=== PATIENT | male | born 1940 | race Caucasian/White ===

== ENCOUNTER 2025-06-08 11:13 | Emergency (ER) | payer OTHER, SELFPAY ==
--- NOTE | ~2025-06-08 | CT_ITS ---
EXAMINATION: CT brain wo con DATE: 06/08/2025 11:41 INDICATION: Altered mental status. Right-sided weakness. TECHNIQUE: Computed tomography (CT) of the head was performed without intravenous contrast. The dose-length product was 1135.00 mGy-cm. Automated exposure control and iterative reconstruction technique were employed. COMPARISON: None FINDINGS: There are chronic bilateral lacunar infarctions. Study limited by motion artifact. No ventriculomegaly or midline shift. There is intracranial atherosclerosis. Chronic left cerebellar infarction. Chronic left occipital lobe infarction. Chronic left posterior parietal infarction. Paranasal sinuses and mastoids are pneumatized. No depressed skull fractures. No acute intracranial hemorrhage, infarction, mass or mass effect IMPRESSION: 1. Extremely limited study due to motion artifact. No acute intracranial abnormality. 2: Chronic bilateral lacunar, left cerebellar, left occipital lobe and left parietal lobe infarctions. Reviewed, dictated and finalized at location O. IMMER IMPRESSION: 1. Extremely limited study due to motion artifact. No acute intracranial abnorm ality. 2: Chronic bilateral lacunar, left cerebellar, left occipital lobe and left pa rietal lobe infarctions.
--- NOTE | ~2025-06-08 | XR_ITS ---
EXAMINATION: XR chest 1V, 06/08/2025 11:36 PEDODONTIST HISTORY: ams, weakness COMPARISON: No comparisons available. Technique: Single view. Findings: The lungs are clear, no effusion. No pneumothorax. Heart is normal size. Mediastinal and hilar contours are within normal limits. Bony thorax no acute abnormality. Impression: No acute cardiopulmonary abnormality. Reviewed, dictated and finalized at location P. DONTIST Impression: No acute cardiopulmonary abnormality.
[2025-06-08 11:12] VITALS: PULSE 67; RESP 28; TEMP 36.4
--- NOTE | 2025-06-08 11:16 | ECG_ITS ---
Test Date: 2025-06-08 11:15:15 Measurements Intervals [place] Rate: 61 P: 0 SD: 0 QRS: 64 QRSD: 99 T: 128 QT: 413 QTc: 418 Interpretive Statements ARTIFACT PRECLUDES ACCURATE RHYTHM INTERPRETATION SEPTAL MYOCARDIAL INFARCTION , OF INDETERMINATE AGE [40+ ms Q WAVE IN V1/V2] MODERATE T-WAVE ABNORMALITY, CONSIDER LATERAL ISCHEMIA [-0.1+ mV T-WAVE IN I/aVL/V5/V6] No previous ECG available for comparison Electronically Signed On 06-08-2025 13:41:38 NET DEVELOPER ARCHITECT by Ron Ennis M.D.
[2025-06-08 11:28] VITALS: BP 167/81; O2SAT 96
--- NOTE | 2025-06-08 11:30 | PC.NURSE ---
Notified MD Carver of patient being sent ot ER from [facility] for questionable increased right side weakness that started about 729 today. patient has history of stroke with baseline right sided weakness, aphasia, and incontinence from stroke of 05/28. Based on assessment on time of arrival, patient is is strong bilaterally in all extremities, some asphasia, alert and oriented x1. mumbled speech which makes it difficult to understand patient at time. MD Carver wanted CT head ordered at this time, no stroke stop called per MD. patient is currently in CT scan. all VSS.
[2025-06-08 11:38] LABS: Hematocrit 38.0 % (42.0-52.0); Hemoglobin 12.2 g/dL (14.0-18.0); Immature Granulocyte Percent A 0.7 % (0-0.5); Lymphocytes Absolute Auto 0.69 K/mm3 (0.9-3.2); Mean Corpuscular HGB Conc 32.1 g/dl (32-36); Mean Corpuscular Hemoglobin 31.4 pg (26-34); Mean Corpuscular Volume 97.9 fl (80-100); Nucleated Red Blood Cells Absolute Auto 0.000 K/mm3 (0.0-0.012); Nucleated Red Blood Cells Perc 0.0 % (0.0-0.2); Platelet Count Result 310 k/mm3 (150-375); Red Blood Count 3.88 M/mm3 (4.6-6.20); White Blood Count 8.2 K/mm3 (4.5-10.0)
[2025-06-08 11:39] VITALS: PULSE 61
[2025-06-08 11:51] LABS: INR 1.6; Partial Thromboplastin Time 33.9 Seconds (22.3-36.8); Prothrombin Time 19.0 Seconds (11.1-14.7)
[2025-06-08 11:53] LABS: Alanine Aminotransferase 6 U/L (6-50); Albumin Level 4.3 g/dL (3.5-5.1); Alkaline Phosphatase 108 U/L (38-126); Anion Gap 6 mmol/L (4-12); Aspartate Amino Transferase 27 U/L (17-59); Bilirubin,Total 0.6 mg/dL (0.2-1.3); Blood Urea Nitrogen 39 mg/dL (9-20); Calcium 9.4 mg/dL (8.4-10.2); Carbon Dioxide 33 mmol/L (22-30); Chloride 101 mmol/L (98-107); Estimated Glomerular Filt Rate 47; Glucose 119 mg/dL (65-110); Potassium 4.5 mmol/L (3.4-5.0); Sodium 140 mmol/L (137-145); Total Protein 7.6 g/dL (6.3-8.2)
[2025-06-08 12:03] LABS: Troponin I 0.019 ng/mL (0.000-0.034)
[2025-06-08 12:18] VITALS: BP 183/85; PULSE 72; RESP 20; O2SAT 100
--- OUTSIDE RECORDS SUMMARY | 2025-06-08 12:40 | XMS_ITS | Clinical Summary ---
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
--- OUTSIDE RECORDS SUMMARY | 2025-06-08 12:40 | XMS_ITS | Encounter Summary ---
Author Organization [facility] Address 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
--- OUTSIDE RECORDS SUMMARY | 2025-06-08 12:40 | XMS_ITS | Encounter Summary ---
Author Organization [facility] Address [address] [place] [address] Care Team Providers Care Commercial Construction Project Manager Name Role Phone Unavailable Primary Care Provider Unavailabl e Encounter Details Date Type Department Care Team (Late st Contact Info) Description 03/07/2023 Lab Requisition [facility] - DermPath Lab [address] [place] [address] Arnav Grossman MD [address] [place] [address] Social History Tobacco Use Types Packs/Day Years Used Date Smoking Tobacco: Never Assessed Sex and Gender Information Value Date Recorded Sex Assigned at Not on file Legal Sex Male 10:13 AM CDT Gender Identity Not on file Sexual Orientation Not on file documented as of this encounter Plan of Treatment Not on file documented as of this encounter Procedures Procedure Name Priority Date/Time Associated Diagnosis Comments DERMATOPATHOLOGY Routine 03/05/2023 12:0 0 AM CDT documented in this encounter Results * DERMATOPATHOLOGY (03/05/2023 12:00 AM CDT) Case Report Dermatopathology Report Case: [id number] Authorizing Provider: Arnav Grossman MD Collected: 03/05/2023 12:00 AM Ordering Location: [facility] DermPath Lab Received: 03/07/2023 10:27 AM Pathologist: Linda Schmitz MD Specimen: Skin, right anti helix 5:26 PM CDT DERMATOPATHOLOGY LABORATORY Final Diagnosis Specimen A. 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 The specimen consists of a shave biopsy measuring 6x5x2 mm. Jar 0. 3 5:26 PM CDT DERMATOPATHOLOGY LABORATORY Microscopic Description Specimen A. SKIN, right anti helix: The epidermis shows parakeratosis, full thickness disorderly maturation of keratinocytes, mitoses at different levels, and dyskeratotic cells. The lesion extends to the base of the biopsy. COMMENT: An invasive squamous cell carcinoma cannot be ruled out. 3 5:26 PM CDT DERMATOPATHOLOGY LABORATORY Disclaimer An external and internal positive and negative controls are appropriate for the histochemical, immunohistochemical and immunofluorescence stain(s) in this case (if any), except where stated explicitly. The performance characteristics of the stain(s) cited in this report were developed and its performance characteristic determined by the Dermatopathology Laboratory at [facility], directed by Dr. Caryn Blanchard. These tests need not be, and therefore are not, approved by the [place] Food and Drug Administration. The tests are used for clinical purposes. Billing Codes Specimen Charges Stain Charges 74471 1 3 5:26 PM CDT DERMATOPATHOLOGY LABORATORY Embedded Images 3 5:26 PM CDT DERMATOPATHOLOGY LABORATORY Pathology/Cytolog y TISSUE SPECIMEN FROM SKIN / Unknown 03/05/2023 03/07/2023 10:27 AM CDT us Arnav Grossman MD LAB - PATHOLOGY/CYTOLOGY ORDER FLORIDALMA Final Result DERMATOPATHOLOGY LABORATORY [facility] - Department of Dermatology [address], [address] [phone] documented in this encounter Visit Diagnoses Not on filedocumented in this encounter
--- OUTSIDE RECORDS SUMMARY | 2025-06-08 12:40 | XMS_ITS | Clinical Summary ---
Author Organization [facility] Address [address] [place] [address] Care Team Providers Care Buffing Machine Operator Semiautomatic Name Role Phone Jose Daniel Arshad MD Primary Care Provider Allergies Active Allergy Reactions Criticality Noted Date Comments Hydrochlorothiazide Sulfa (Sulfonamide Antibiotics) Medications fluorouraciL (EFUDEX) 5 % creamIndications :Actinic keratosis Apply thin film two times daily to scalp and ears for 4 weeks. 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 Gender Identity Not on file Sexual Orientation Not on file Last Filed Vital Signs Vital Sign Reading Time Taken Comments Blood Pressure 153/79 08/03/2024 9:34 AM CO FOUNDER & CEO Pulse 83 08/03/2024 9:34 AM CO FOUNDER & CEO Temperature - - Respiratory Rate - - Oxygen Saturation 97% 08/03/2024 9:34 AM CO FOUNDER & CEO Inhaled Oxygen Concentration - - Weight - - Height - - Body Mass Index - - Plan of Treatment Health Maintenance Due Date Last Done Comments Depression Screening 1938 Fall Risk Assessment 1940 Hepatitis B Screening 1956 Zoster Vaccine (1 of 2) 1988 Well Visit 65+ 10/27/2003 DTaP/Tdap/Td Vaccine (2 - Td or Tdap) 08/27/2023 08/27/2013 Covid-19 Vaccine (2024-2 6 season) 2025 04/18/2022, 03/20/2021, 08/24/2020, Additional history exists Influenza Vaccine (#1) 2025 4, 05/07/2023, 04/18/2022, Additional history exists Pneumococcal vaccine 65+ Completed 020, 05/03/2016, 11/02/2015, Additional history exists Insurance [employer] MEDICARE Care Teams Buffing Machine Operator Semiautomatic Relationship Specialty [place] [id number] [place] [id number] PCP - General Internal Medicine 07/01/24
--- OUTSIDE RECORDS SUMMARY | 2025-06-08 12:41 | XMS_ITS | Clinical Summary ---
Author Organization [facility] Address [address] [place] [address] Care Team Providers Care Head Loft Worker Name Role Phone Unavailable Primary Care Provider Unavailabl e Source Comments [facility],non-owned Affiliates and Associated Physician Practices is amultiple site organization consisting of ambulatory clinics and hospital sitesin [place], [place], [place] and [place]. This disclosure is being madepursuant to the Care Everywhere program and may not contain all information available regarding this patient. Last updated 18.[facility] Medications * Be aware that medications may not be up to date on this document. Alwaysverify current medications with the patient. carbidopa-levod opa (Sinemet) 25-100 MG tablet Take 1.5 (one and one-half) tablets by mouth 5 times daily 10/22/2024 Active clonazePAM (KlonoPIN) 1 MG tablet Take 1 (one) tablet by mouth at bedtime 05/23/2025 Active bumetanide (Bumex) 2 MG tablet Take 1 (one) tablet by mouth once daily 02/28/2025 Active carvedilol (Coreg) 6.25 MG tablet Take 1 (one) tablet by mouth 2 times daily 01/20/2025 Active folic acid (Folvite) 1 MG tablet Take 0.5 (one-half) tablet by mouth once daily 03/23/2025 Active hydrOXYzine HCl (Atarax) 10 MG tablet Take 1 (one) tablet by mouth at bedtime 11/23/2024 Active omeprazole (PriLOSEC) 40 MG capsule Take 1 (one) capsule by mouth once daily 02/14/2025 Active potassium chloride ER (Klor-Con M) 20 MEQ tablet Take 1 (one) tablet by mouth every 12 hours 03/21/2025 Active apixaban (Eliquis) 5 MG tablet Take 1 (one) tablet by mouth 2 times daily 60 tablet 06/02/2025 Active polyethylene glycol 3350 (Miralax) 17 g packet Take 17 (seventeen) g by mouth once daily 30 packet 06/03/2025 Active senna (Senokot) 8.6 MG tablet Take 1 (one) tablet by mouth once daily 30 tablet 06/03/2025 Active atorvastatin (Lipitor) 80 MG tablet Take 1 (one) tablet by mouth at bedtime 30 tablet 06/02/2025 Active Active Problems Problem Noted Date Diagnosed Date Parkinson disease 06/02/2025 Assessment & Plan (06/02/2025 1:41 PM SENIOR VALIDATION ENGINEER): Stable Plan: Continue home sinemet at home 25-100 mg 5 times daily (HFpEF) heart failure with preserved ejection fr action 06/02/2025 Assessment & Plan (06/02/2025 1:41 PM SENIOR VALIDATION ENGINEER): 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 Plan: Discharge to acute rehab Continue atorvastatin 80 mg qHS Continue Eliquis 5 mg BID Continue home Coreg 6.25 BID and bumex 2mg daily Outpatient [facility] for Watchman device failure CVA (cerebral vascular accident) 05/29/2025 Assessment & Plan (06/02/2025 1:41 PM SENIOR VALIDATION ENGINEER): 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 Plan: Discharge to acute rehab Continue atorvastatin 80 mg qHS Continue Eliquis 5 mg BID Continue home Coreg 6.25 BID and bumex 2mg daily Outpatient [facility] for Watchman device failure Anxiety 05/29/2025 Assessment & Plan (06/02/2025 1:41 PM SENIOR VALIDATION ENGINEER): Plan: Continue home Clonazepam 0.5 mg morning, 1 mg qhs Right sided weakness 05/28/2025 Assessment & Plan (06/02/2025 1:41 PM SENIOR VALIDATION ENGINEER): 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 Plan: Discharge to acute rehab Continue atorvastatin 80 mg qHS Continue Eliquis 5 mg BID Continue home Coreg 6.25 BID and bumex 2mg daily Outpatient [facility] for Watchman device failure 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 10/02/2022 Assessment & Plan (06/02/2025 1:41 PM SENIOR VALIDATION ENGINEER): 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 Plan: Discharge to acute rehab Continue atorvastatin 80 mg qHS Continue Eliquis 5 mg BID Continue home Coreg 6.25 BID and bumex 2mg daily Outpatient [facility] for Watchman device failure Status post CVA 08/25/2022 Assessment & Plan (06/02/2025 1:41 PM SENIOR VALIDATION ENGINEER): 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 Plan: Discharge to acute rehab Continue atorvastatin 80 mg qHS Continue Eliquis 5 mg BID Continue home Coreg 6.25 BID and bumex 2mg daily Outpatient [facility] for Watchman device failure Stage 3b chronic kidney disease 04/04/2022 Assessment & Plan (06/02/2025 1:41 PM SENIOR VALIDATION ENGINEER): Chronic conditions, stable Plan: Continue home omeprazole 40 mg daily; Follow up with PCP Chronic obstructive pulmonary disease 02/28/2021 Assessment & Plan (06/02/2025 1:41 PM SENIOR VALIDATION ENGINEER): Chronic conditions, stable Plan: Continue home omeprazole 40 mg daily; Follow up with PCP Persistent atrial fibrillation 10/20/2019 Assessment & Plan (06/02/2025 1:41 PM SENIOR VALIDATION ENGINEER): 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 Plan: Discharge to acute rehab Continue atorvastatin 80 mg qHS Continue Eliquis 5 mg BID Continue home Coreg 6.25 BID and bumex 2mg daily Outpatient [facility] for Watchman device failure Chronic diastolic congestive heart failure 08/31 Assessment & Plan (06/02/2025 1:41 PM SENIOR VALIDATION ENGINEER): 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 Plan: Discharge to acute rehab Continue atorvastatin 80 mg qHS Continue Eliquis 5 mg BID Continue home Coreg 6.25 BID and bumex 2mg daily Outpatient [facility] for Watchman device failure Generalized anxiety disorder 08/10/2019 Assessment & Plan (06/02/2025 1:41 PM SENIOR VALIDATION ENGINEER): Plan: Continue home Clonazepam 0.5 mg morning, 1 mg qhs Gastroesophageal reflux disease without esophagi tis 08/04/2018 Assessment & Plan (06/02/2025 1:41 PM SENIOR VALIDATION ENGINEER): Chronic conditions, stable Plan: Continue home omeprazole 40 mg daily; Follow up with PCP Encounters Date Type Department Care Team Description 05/28/2025 5:43 PM SENIOR VALIDATION ENGINEER - 06/02/2025 4:13 PM SENIOR VALIDATION ENGINEER Hospital Encounter [facility] [address] [place] [id number] Nomi Bhat MD Neurology Discharge Disposition: Rehab:Inpatient 05/28/2025 Travel from Last 3 Months Social History Tobacco Use Types Packs/Day Years Used Date Smoking Tobacco: Never Smokeless Tobacco: Never Alcohol Use Standard Drinks/Week Comments Never 0 (1 standard drink = 0.6 oz pur e alcohol) PHQ-2 Answer Date Recorded Patient Health Questionnaire-2 Score 0 05/28/2025 AUDIT-C Answer Date Recorded Q1: How often do you have a drink containing alcohol? Never 05/29/2025 Q2: How many drinks containi ng alcohol do you have on a typical day when you are drinking? Patient does not drink Q3: How often do you have si x or more drinks on one occasion? Never 05/29/2025 Overall Financial Resource Strain (CARDIA) Answe r Date Recorded How hard is it for you to pa y for the very basics like food, housing, medical care, and heating? Not hard at all 05/29/2025 [employer] [facility] - Occupational Stress Questionnaire Answer Date Recorded Do you feel stress - tense, restless, nervous, or anxious, or unable to sleep at night because your mind is troubled all the time - these days? Not at all 05/29/2025 Hunger Vital Sign Answer Date Recorded Within the past 12 months, y ou worried that your food would run out before you got the money to buy more. Never true 11/16/20 25 Within the past 12 months, t he food you bought just didn't last and you didn't have money to get more. Never true 05/29/2025 PRAPARE - Transportation Answer Date Re corded In the past 12 months, has l ack of transportation kept you from medical appointments or from getting medications? No 05/14 In the past 12 months, has l ack of transportation kept you from meetings, work, or from getting things needed for daily living? No 05/29/2025 Housing Stability Vital Sign Answer Bar e Recorded In the last 12 months, was t here a time when you were not able to pay the mortgage or rent on time? No 05/29/2025 In the past 12 months, how m any times have you moved where you were living? 0 05/29/2025 At any time in the past 12 m [facility], were you homeless or living in a correction (including now)? No 05/29/2025 Sex and Gender Information Value Date Recorded Sex Assigned at Not on file Legal Sex Male 10:13 AM CDT Gender Identity Not on file Sexual Orientation Not on file Last Filed Vital Signs Vital Sign Reading Time Taken Comments Blood Pressure 169/64 06/02/2025 3:54 AM SENIOR VALIDATION ENGINEER Pulse 63 06/02/2025 11:30 AM SENIOR VALIDATION ENGINEER Temperature 37.2 C (98.9 F) 06/02/2025 3:54 AM SENIOR VALIDATION ENGINEER Respiratory Rate 18 06/02/2025 11:30 AM SENIOR VALIDATION ENGINEER Oxygen Saturation 98% 06/02/2025 11:30 AM SENIOR VALIDATION ENGINEER Inhaled Oxygen Concentration - - Weight 66.4 kg (146 lb 4.8 oz) 06/02/2025 4:00 A M SENIOR VALIDATION ENGINEER Height 195.6 cm (6' 5) 05/28/2025 7:30 PM SENIOR VALIDATION ENGINEER Body Mass Index 17.35 05/28/2025 7:30 PM SENIOR VALIDATION ENGINEER Plan of Treatment Health Maintenance Due Date Last Done Comments DTAP/TDAP/TD VACCINES (1 - Tdap) 1959 PNEUMOCOCCAL VACCINE 50+ (1 of 2 - PCV) 1957 ZOSTER VACCINE (1 of 2) 1988 Respiratory Syncytial Virus (RSV) Vaccine Pt: or over 60 yrs (1 - 1-dose 75+ series) 2013 MEDICARE AWV CALENDAR YEAR 2024 COVID-19 VACCINE ( season) 2025 04/18/2022, 03/20/2021, 08/24/2020, Additional history exists INFLUENZA VACCINE (#1) 2025 4, 05/07/2023, 04/18/2022, Additional history exists DEPRESSION SCREENING Completed 05/28/2025 HEPATITIS B VACCINE Aged Out No longe r eligible based on patient's age to complete this topic HIB VACCINE Aged Out No longer eligi ble based on patient's age to complete this topic HPV VACCINE Aged Out No longer eligi ble based on patient's age to complete this topic MENINGOCOCCAL (Group B) VACCINE SHARED DECISION-MAKING Aged Out No longer eligible based on patient's age to complete this topic MENINGOCOCCAL GROUPS A/C/Y/W VACCINE Aged Out No longer eligible based on patient's age to complete this topic Procedures Procedure Name Priority Date/Time Associated Diagnosis Comments GLUCOSE - POINT OF CARE Routine 06/02/2025 12:22 PM SENIOR VALIDATION ENGINEER GLUCOSE - POINT OF CARE Routine 06/02/2025 8:02 AM SENIOR VALIDATION ENGINEER GLUCOSE - POINT OF CARE Routine 06/01/2025 9:56 PM SENIOR VALIDATION ENGINEER PHOSPHORUS BLOOD Routine 06/01/2025 6:17 PM SENIOR VALIDATION ENGINEER MAGNESIUM BLOOD Routine 06/01/2025 6:17 PM SENIOR VALIDATION ENGINEER CBC W AUTO DIFFERENTIAL Routine 06/01/2025 6:17 PM SENIOR VALIDATION ENGINEER BASIC METABOLIC PANEL (CALCIUM TOTAL) Routine 06/01/2025 6:17 PM SENIOR VALIDATION ENGINEER GLUCOSE - POINT OF CARE Routine 06/01/2025 5:19 PM SENIOR VALIDATION ENGINEER GLUCOSE - POINT OF CARE Routine 06/01/2025 11:26 AM SENIOR VALIDATION ENGINEER GLUCOSE - POINT OF CARE Routine 06/01/2025 10:19 AM SENIOR VALIDATION ENGINEER CBC W/O DIFFERENTIAL Routine 06/01/2025 8:18 AM SENIOR VALIDATION ENGINEER GLUCOSE - POINT OF CARE Routine 05/31/2025 8:31 PM SENIOR VALIDATION ENGINEER GLUCOSE - POINT OF CARE Routine 05/31/2025 6:16 PM SENIOR VALIDATION ENGINEER GLUCOSE - POINT OF CARE Routine 05/31/2025 11:34 AM SENIOR VALIDATION ENGINEER XR CHEST 1VW PORTABLE Routine 05/31/2025 11:06 AM SENIOR VALIDATION ENGINEER Cough, unspecified type GLUCOSE - POINT OF CARE Routine 05/31/2025 7:53 AM SENIOR VALIDATION ENGINEER PHOSPHORUS BLOOD Routine 05/31/2025 4:58 AM SENIOR VALIDATION ENGINEER MAGNESIUM BLOOD Routine 05/31/2025 4:58 AM SENIOR VALIDATION ENGINEER CBC W AUTO DIFFERENTIAL Routine 05/31/2025 4:58 AM SENIOR VALIDATION ENGINEER BASIC METABOLIC PANEL (CALCIUM TOTAL) Routine 05/31/2025 4:58 AM SENIOR VALIDATION ENGINEER GLUCOSE - POINT OF CARE Routine 05/30/2025 8:52 PM SENIOR VALIDATION ENGINEER GLUCOSE - POINT OF CARE Routine 05/30/2025 4:58 PM SENIOR VALIDATION ENGINEER CARDIAC EKG ORDER 05/30/2025 1:2 9 PM SENIOR VALIDATION ENGINEER GLUCOSE - POINT OF CARE Routine 05/30/2025 12:07 PM SENIOR VALIDATION ENGINEER GLUCOSE - POINT OF CARE Routine 05/30/2025 8:07 AM SENIOR VALIDATION ENGINEER PHOSPHORUS BLOOD Routine 05/30/2025 5:24 AM SENIOR VALIDATION ENGINEER MAGNESIUM BLOOD Routine 05/30/2025 5:24 AM SENIOR VALIDATION ENGINEER CBC W AUTO DIFFERENTIAL Routine 05/30/2025 5:24 AM SENIOR VALIDATION ENGINEER BASIC METABOLIC PANEL (CALCIUM TOTAL) Routine 05/30/2025 5:24 AM SENIOR VALIDATION ENGINEER GLUCOSE - POINT OF CARE Routine 05/29/2025 7:49 PM SENIOR VALIDATION ENGINEER GLUCOSE - POINT OF CARE Routine 05/29/2025 5:28 [address]IOR VALIDATION [address]ER CT HEAD WO CONTRAST Routine 05/29/2025 3 :26 PM SENIOR VALIDATION ENGINEER Cerebrovascular accident (CVA), unspecified mechanism (HCC) GLUCOSE - POINT OF CARE Routine 05/29/2025 11:42 AM SENIOR VALIDATION ENGINEER ECHO COMPLETE W CONTRAST W BUBBLE STUDY Routine 05/29/2025 11:28 AM SENIOR VALIDATION ENGINEER Cerebrovascular accident (CVA), unspecified mechanism (HCC) FL SWALLOWING FUNCTION STUDY Routine 05/29/2025 10:15 AM SENIOR VALIDATION ENGINEER Status post CVA LIPID PROFILE Routine 05/28/2025 11:57 PM SENIOR VALIDATION ENGINEER PHOSPHORUS BLOOD Routine 05/28/2025 11:5 7 PM SENIOR VALIDATION ENGINEER MAGNESIUM BLOOD Routine 05/28/2025 11:57 PM SENIOR VALIDATION ENGINEER CBC W AUTO DIFFERENTIAL Routine 05/28/2025 11:57 PM SENIOR VALIDATION ENGINEER BASIC METABOLIC PANEL (CALCIUM TOTAL) Routine 05/28/2025 11:57 PM SENIOR VALIDATION ENGINEER CT HEAD WO CONTRAST STAT 05/28/2025 1 0:17 PM SENIOR VALIDATION ENGINEER Cerebrovascular accident (CVA), unspecified mechanism (HCC) BASIC METABOLIC PANEL (CALCIUM TOTAL) Routine 05/28/2025 7:47 PM SENIOR VALIDATION ENGINEER TROPONIN-I HIGH SENSITIVE REFLEX 1HOUR Timed 05/28/2025 7:47 PM SENIOR VALIDATION ENGINEER HEMOGLOBIN A1C Add on 05/28/2025 7:47 PM SENIOR VALIDATION ENGINEER TROPONIN-I HIGH SENSITIVE BASELINE + 1HR STAT 05/28/2025 6:47 PM SENIOR VALIDATION ENGINEER XR CHEST 1VW PORTABLE STAT 05/28/2025 6:31 PM SENIOR VALIDATION ENGINEER Cerebrovascular accident (CVA), unspecified mechanism (HCC) PTT STAT 05/28/2025 6:15 PM SENIOR VALIDATION ENGINEER PT-INR STAT 05/28/2025 6:15 PM SENIOR VALIDATION ENGINEER GLUCOSE - POINT OF CARE Routine 05/28/2025 6:14 PM SENIOR VALIDATION ENGINEER EKG 12-LEAD Routine 05/28/2025 6:09 PM SENIOR VALIDATION ENGINEER Cerebrovascular accident (CVA), unspecified mechanism (HCC) TROPONIN-I HIGH SENSITIVE STAT 05/28/2025 5:55 PM SENIOR VALIDATION ENGINEER COMPREHENSIVE METABOLIC PANEL STAT 05/28/2025 5:55 PM SENIOR VALIDATION ENGINEER CBC W AUTO DIFFERENTIAL STAT 05/28/2025 5:55 PM SENIOR VALIDATION ENGINEER from Last 3 Months Results * (ABNORMAL) GLUCOSE - POINT OF CARE (06/02/2025 12:22 PM SENIOR VALIDATION ENGINEER) Only the most recent of18 resultswithin the time period is included. Glucose WB/POC 118(H) 70 - 99 mg/dL 06/02/2025 12:25 PM SENIOR VALIDATION ENGINEER [facility] Specimen Type Arterial/C apillary 06/02/2025 12:25 PM SENIOR VALIDATION ENGINEER [facility] Blood BLOOD SPECIMEN / Unknown 06/02/2025 12:22 PM SENIOR VALIDATION ENGINEER 06/02/2025 12:25 PM SENIOR VALIDATION ENGINEER Nomi Bhat MD LAB - POINT OF CARE ORDERAB LES Final Result [facility] [address] [place] [address] [phone] * (ABNORMAL) CBC W AUTO DIFFERENTIAL (06/01/2025 6:17 PM [facility]) Only the most recent of5 resultswithin the time period is included. WBC 12.1(H) 4.0 - 10.7 x10E9/L 06/01/2025 9:00 PM [facility] RBC Count 3.80(L) 4.30 - 5.80 x10E12/L 06/01/2025 9:00 PM [facility] Hemoglobin 12.3(L) 13.3 - 17.5 g/dL 06/01/2025 9:00 PM [facility] Hematocrit 36.5(L) 38.7 - 51.1 % 06/01/2025 9:00 PM [facility] MCV 96.1 80.0 - 98.0 fL 06/01/2025 9:00 PM [facility] MCH 32.4 26.7 - 33.6 pg 06/01/2025 9:00 PM [facility] MCHC 33.7 31.7 - 36.3 g/dL 06/01/2025 9:00 PM [facility] RDW-CV 12.1 11.3 - 14.8 % 06/01/2025 9:00 PM [facility] Platelet Count 330 150 - 420 x10E9/L 06/01/2025 9:00 PM [facility] MPV 10.4 7.8 - 11.4 fL 06/01/2025 9:00 PM [facility] Neutrophil % 82.0(H) 41.0 - 74.0 % 06/01/2025 9:00 PM [facility] Lymphocyte % 6.9(L) 17.0 - 47.0 % 06/01/2025 9:00 PM [facility] Monocyte % 8.1 3.0 - 11.0 % 06/01/2025 9:00 PM [facility] Eosinophil % 2.0 0.0 - 7.0 % 06/01/2025 9:00 PM [facility] Basophil % 0.3 0.0 - 1.6 % 06/01/2025 9:00 PM [facility] Immature Granulocytes % 0.7 0.0 - 1.0 % 06/01/2025 9:00 PM [facility] Neutrophil Absolute 9.95(H) 1.60 - 7.50 x10E9/L 06/01/2025 9:00 PM [facility] Lymphocyte Absolute 0.84(L) 1.00 - 4.40 x10E9/L 06/01/2025 9:00 PM [facility] Monocyte Absolute 0.98 0.15 - 1.00 x10E9/L 06/01/2025 9:00 PM [facility] Eosinophil Absolute 0.24 0.00 - 0.60 x10E9/L 06/01/2025 9:00 PM [facility] Basophil Absolute 0.04 0.00 - 0.13 x10E9/L 06/01/2025 9:00 PM [facility] Blood BLOOD SPECIMEN / Unknown Lab Venipuncture / Unknown 06/01/2025 6:17 PM SENIOR VALIDATION ENGINEER 06/01/2025 8:54 PM SENIOR VALIDATION ENGINEER us Nomi Bhat MD LAB - HEMATOLOGY ORDERABLES Final Result [address] [address], [place] [phone] * (ABNORMAL) BASIC METABOLIC PANEL (CALCIUM TOTAL) (06/01/2025 6:17 PM SENIOR VALIDATION ENGINEER) Only the most recent of5 resultswithin the time period is included. BUN 40(H) 7 - 26 mg/dL 06/01/2025 9:27 PM [facility] Creatinine 1.26(H) 0.71 - 1.16 mg/dL 06/01/2025 9:27 PM [facility] Sodium 150(H) 136 - 145 mmol/L 06/01/2025 9:27 PM [facility] Potassium 3.8 3.5 - 4.5 mmol/L 06/01/2025 9:27 PM [facility] Chloride 108(H) 98 - 107 mmol/L 06/01/2025 9:27 PM [facility] CO2 29 22 - 29 mmol/L 06/01/2025 9:27 PM [facility] Glucose 123(H) 70 - 99 mg/dL 06/01/2025 9:27 PM [facility] Calcium 9.5 8.4 - 10.2 mg/dL 06/01/2025 9:27 PM [facility] Anion Gap 13 6 - 16 06/01/2025 9:27 PM [facility] BUN/Creatinine Ratio 32(H) 7 - 23 06/01/2025 9:27 PM [facility] Osmolality Calculated 321(H) 275 - 295 mOsm/kg 06/01/2025 9:27 PM [facility] eGFR by CKD-EPI 56(L) >=90 mL/min/1.7 3 m2 06/01/2025 9:27 PM [facility] Comment:Estimated Glomerular Filtration Rate (eGFR) calculated using the CKD-EPI Creatinine Equation (2020), per the National Kidney Foundation and [place] [employer]ph[employer] recommendations. Blood BLOOD SPECIMEN / Unknown Lab Venipuncture / Unknown 06/01/2025 6:17 PM SENIOR VALIDATION ENGINEER 06/01/2025 8:54 PM SENIOR VALIDATION ENGINEER Nomi Bhat MD LAB - CHEMISTRY ORDERABLES Final Result [address] [address], [place] [phone] * PHOSPHORUS BLOOD (06/01/2025 6:17 PM SENIOR VALIDATION ENGINEER) Only the most recent of4 resultswithin the time period is included. Phosphorus 3.2 2.8 - 5.1 mg/dL 06/01/2025 9:27 PM [facility] Blood BLOOD SPECIMEN / Unknown Lab Venipuncture / Unknown 06/01/2025 6:17 PM SENIOR VALIDATION ENGINEER 06/01/2025 8:54 PM SENIOR VALIDATION ENGINEER us Nomi Bhat MD LAB - CHEMISTRY ORDERABLES Final Result [address] [place] [address], [place] [phone] * MAGNESIUM BLOOD (06/01/2025 6:17 PM SENIOR VALIDATION ENGINEER) Only the most recent of4 resultswithin the time period is included. [facility] Magnesium 2.2 1.6 - 2.6 mg/dL 06/01/2025 9:27 PM [facility] Blood BLOOD SPECIMEN / Unknown Lab Venipuncture / Unknown 06/01/2025 6:17 PM SENIOR VALIDATION ENGINEER 06/01/2025 8:54 PM SENIOR VALIDATION ENGINEER Nomi Bhat MD LAB - CHEMISTRY ORDERABLES Final Result [address] [address], [place] [phone] * (ABNORMAL) CBC W/O DIFFERENTIAL (06/01/2025 8:18 AM SENIOR VALIDATION ENGINEER) [facility] WBC 9.4 4.0 - 10.7 x10E9/L 06/01/2025 9:03 AM [facility] RBC Count 3.65(L) 4.30 - 5.80 x10E12/L 06/01/2025 9:03 AM [facility] Hemoglobin 11.5(L) 13.3 - 17.5 g/dL 06/01/2025 9:03 AM [facility] Hematocrit 34.7(L) 38.7 - 51.1 % 06/01/2025 9:03 AM [facility] MCV 95.1 80.0 - 98.0 fL 06/01/2025 9:03 AM [facility] MCH 31.5 26.7 - 33.6 pg 06/01/2025 9:03 AM [facility] MCHC 33.1 31.7 - 36.3 g/dL 06/01/2025 9:03 AM [facility] RDW-CV 11.8 11.3 - 14.8 % 06/01/2025 9:03 AM [facility] Platelet Count 278 150 - 420 x10E9/L 06/01/2025 9:03 AM SENIOR VALIDATION ENGINEER [facility] MPV 9.9 7.8 - 11.4 fL 06/01/2025 9:03 AM SENIOR VALIDATION ENGINEER [facility] Blood BLOOD SPECIMEN / Unknown Lab Venipuncture / Unknown 06/01/2025 8:18 AM SENIOR VALIDATION ENGINEER 06/01/2025 8:36 AM SENIOR VALIDATION ENGINEER us Nomi Bhat MD LAB - HEMATOLOGY ORDERABLES Final Result [facility] [address] [place] [address], [place] [phone] * XR Chest 1Vw Portable (05/31/2025 11:06 AM SENIOR VALIDATION ENGINEER) Only the most recent of2 resultswithin the time period is included. Anatomical Region Laterality Modality Chest Digital Radiogra phy 06/01/2025 9:16 PM SENIOR VALIDATION ENGINEER Impressions 06/01/2025 9:16 PM SENIOR VALIDATION ENGINEER Impression: There is no focal consolidation.There is no pleural effusion.There is no pneumothorax. Heart size is normal. There is severe aortic calcification. > Interpreting Provider: Garland Escalera MD on 06/01/2025 9:16 PM Narrative 06/01/2025 9:16 PM SENIOR VALIDATION ENGINEER PROCEDURE: XR CHEST 1VW PORTABLE, DATE/TIME OF EXAM: 05/31/2025 11:06 AM, LOCATION [facility] INDICATION: R05.9: Cough, unspecified type ADDITIONAL CLINICAL INFORMATION: Ordering Provider Reason For Exam: infection? Technologist Note: Additional: COMPARISON: None. Procedure Note Garland Escalera MD - 06/01/2025 PROCEDURE: XR CHEST 1VW PORTABLE, DATE/TIME OF EXAM: 05/31/2025 11:06AM, LOCATION [facility] INDICATION: R05.9: Cough, unspecified type ADDITIONAL CLINICAL INFORMATION: Ordering Provider Reason For Exam: infection? Technologist Note: Additional: COMPARISON: None. Impression: There is no focal consolidation.There is no pleural effusion.There is no pneumothorax. Heart size is normal. There is severe aortic calcification. > Interpreting Provider: Garland Escalera MD on 06/01/2025 9:16 PM us Nomi Bhat MD DIAGNOSTIC IMAGING ORDERABL ES Final Result * CARDIAC EKG ORDER (05/30/2025 1:29 PM SENIOR VALIDATION ENGINEER) Narrative 05/30/2025 1:29 PM SENIOR VALIDATION ENGINEER Ordered by an unspecified provider. us Scanned Document CARDIAC SERVICES ORDERABLES Fin al Result * CT HEAD NON CONTRAST (05/29/2025 3:26 PM SENIOR VALIDATION ENGINEER) Only the most recent of2 resultswithin the time period is included. Anatomical Region Laterality Modality Head Computed Tomogra phy 05/29/2025 4:01 PM SENIOR VALIDATION ENGINEER Impressions 05/29/2025 4:40 PM SENIOR VALIDATION ENGINEER IMPRESSION: 1. No acute intracranial process. 2. 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 Redemonstration of a chronic infarct in the left occipital lobe in the left SOLE SEWER HAND territory, in the cerebellar hemispheres bilaterally and multiple small chronic lacunar infarcts in the basal ganglia and the right anterior coronal radiata. > Interpreting Provider: Bello Sierra MD on 05/29/2025 4:40 PM Narrative 05/29/2025 4:40 PM SENIOR VALIDATION ENGINEER PROCEDURE: CT HEAD WO CONTRAST, DATE/TIME OF EXAM: 05/29/2025 3:27 PM, LOCATION [facility] INDICATION: I63.9: Cerebrovascular accident (CVA), unspecified mechanism (HCC) ADDITIONAL CLINICAL INFORMATION: Ordering Provider Reason For Exam: [address] Technologist Note: Additional: TECHNIQUE: CT of the head was performed without contrast according to standard protocol. CONTRAST: COMPARISON: 05/28/2025. FINDINGS: No acute intracranial hemorrhage or intra- or extra-axial fluid collections are identified. There is moderate cerebral volume loss with associated ex vacuo ventricular dilatation. Redemonstration of a chronic infarct in the left occipital lobe in the left SOLE SEWER HAND territory, in the cerebellar hemispheres bilaterally and multiple small chronic lacunar infarcts in the basal ganglia and the right anterior coronal radiata. The basal cisterns are patent. No mass effect or midline shift is seen. The rivero-white matter differentiation is normal. Moderate periventricular white matter hypoattenuation is nonspecific, but can be seen in the setting of chronic small vessel ischemic disease. There is atherosclerotic calcification of the carotid siphons. The visualized portions of the orbits, paranasal sinuses, and mastoids appear normal. No acute calvarial fracture is identified. Procedure Note Bello Sierra MD - 05/29/2025 PROCEDURE: CT HEAD WO CONTRAST, DATE/TIME OF EXAM: 05/29/2025 3:27 PM, LOCATION [facility] INDICATION: I63.9: Cerebrovascular accident (CVA), unspecified mechanism (HCC) ADDITIONAL CLINICAL INFORMATION: Ordering Provider Reason For Exam: 24 hr post [facility] CTH Technologist Note: Additional: TECHNIQUE: CT of the head was performed without contrast according to standard protocol. CONTRAST: COMPARISON: 05/28/2025. FINDINGS: No acute intracranial hemorrhage or intra- or extra-axial fluidcollections are identified. There is moderate cerebral volume loss with associatedex vacuo ventricular dilatation. Redemonstration of a chronic infarct inthe left occipital lobe in the left SOLE SEWER HAND territory, in the cerebellar hemispheres bilaterally and multiple small chronic lacunar infarcts inthe basal ganglia and the right anterior coronal radiata. The basal cisterns are patent. No mass effect or midline shift is seen. The rivero-whitematter differentiation is normal. Moderate periventricular white matter hypoattenuation is nonspecific, but can be seen in the setting ofchronic small vessel ischemic disease. There is atherosclerotic calcification of the carotid siphons. The visualized portions of the orbits, paranasal sinuses, and mastoids appear normal. No acute calvarial fracture is identified. IMPRESSION: 1. No acute intracranial process. 2. Chronic small vessel ischemic disease of the brain with cerebralvolume loss. Redemonstration of a chronic infarct in the left occipital lobe in the left SOLE SEWER HAND territory, in the cerebellar hemispheres bilaterally and multiple small chronic lacunar infarcts in the basal ganglia and theright anterior coronal radiata. > Interpreting Provider: Bello Sierra MD on 05/29/2025 4:40 PM us Nomi Bhat MD CT ORDERABLES Final Resul t * ECHO COMPLETE W CONTRAST W BUBBLE STUDY (05/29/2025 11:28 AM SENIOR VALIDATION ENGINEER) AV area index 1.637 cm2/m2 SSM CV FUJI PACS Dimensionless Index 0.802 unitless SSM CV FUJI PACS Myocardial strain charge 2 unitless SSM CV FUJI PACS LV EDV A2C 133 ml SSM CV FU JI PACS LV EDV A4C 126 ml SSM CV FU JI PACS LV ESV A2C 36.7 ml SSM CV FU JI PACS LV ESV A4C 35.3 ml SSM CV FU JI PACS IVSd 2D 0.855 cm SSM CV FUJ I PACS LVIDd 4.49 cm SSM CV FUJ I PACS LVIDs 2.51 cm SSM CV FUJ I PACS LVOT diam 2.195 cm SSM CV FUJ I PACS LVOT VTI 19.4 cm SSM CV FUJ I PACS LVOT pk ronny 113 cm/s SSM CV F UJI PACS LVOT pk grad 4 mmHg SSM CV FUJI PACS LVPWd 0.968 cm SSM CV FUJ I PACS MV lat a' ronny 3.37 cm/s SSM CV FUJI PACS MV E' lateral ronny 10.8 cm/s SS M CV FUJI PACS MV lat S' ronny 7.18 cm/s SSM CV FUJI PACS LV A2C EF 72.406 % SSM CV FUJ I PACS LV A4C EF 71.984 % SSM CV FUJ I PACS LV biplane EF 71.069 % SSM CV FUJI PACS LA vol BP 93.8 ml SSM CV FUJ I PACS LA size 3.7 cm SSM CV FUJ I PACS LA vol index 0.051 l/m2 SSM CV FUJI PACS RA DIASTOLIC MAJOR AXIS LENGTH (4C) 5.8 cm SSM CV FUJI PACS RA area 23.116 cm2 SSM CV FUJ I PACS AV mn grad 2 mmHg SSM CV FU JI PACS AV VTI 24.2 cm SSM CV FUJ I PACS AV pk ronny 112 cm/s SSM CV FUJ I PACS AV pk grad 3 mmHg SSM CV FU JI PACS AV area cont VTI 3.032 cm2 SSM CV FUJI PACS AV area pk ronny 3.816 cm2 SSM C V FUJI PACS ST junction 2.7 cm SSM CV F UJI PACS Sinus of Valsalva 3.623 cm SS M CV FUJI PACS Ascending aorta 2.8 cm SSM CV FUJI PACS IVC Diam Expiration 1.93 cm SSM CV FUJI PACS MV A pk ronny 27.2 cm/s SSM CV F UJI PACS MV E pk ronny 88.4 cm/s SSM CV F UJI PACS MV mn grad 2 mmHg SSM CV FU JI PACS MV VTI 29.1 cm SSM CV FUJ I PACS PV VTI 22.3 cm SSM CV FUJ I PACS PV pk ronny 109 cm/s SSM CV FUJ I PACS RV-maya basal diam 5.06 cm S SM CV FUJI PACS RV-maya mid diam 3.39 cm SSM CV FUJI PACS TAPSE 2.01 cm SSM CV FUJ I PACS TR pk ronny 308 cm/s SSM CV FUJ I PACS Anatomical Region Laterality Modality Ultrasound 05/29/2025 8:11 AM SENIOR VALIDATION ENGINEER Narrative 05/29/2025 2:13 PM SENIOR VALIDATION ENGINEER Summary * The left ventricle is normal in size, with normal systolic function and an estimated ejection fraction of 71 % by biplane method of disks. Left ventricular wall motion is normal. * The left ventricular diastolic function is consistent with increased left atrial filling pressure. * Right ventricle is normal in size with normal systolic function. * The left atrium is severely dilated with a left atrial volume index of 51 ml/m2 by BP MOD. * The right atrium is moderately dilated. * The pulmonary artery systolic pressure is mildly elevated, 41 mmHg. * Agitated saline contrast study at rest and with Valsalva is negative for a shunt. Patient Info Name: Pavel Alfaro Age: 84 years : 1940 Gender: Male Ht: 77 in Wt: 143 lb BSA: 1.85 m2 HR: 66 bpm BP: 181 / 112 mmHg Heart Rhythm: Sinus Rhythm Exam Date: 05/29/2025 8:11 AM Patient Status: I/P Study Site: [facility] Primary Location: [facility] EStudy Info Technical Quality: Technically Difficult Exam Type: ECHO COMPLETE W CONTRAST W BUBBLE STUDY Indications I63.9 - Cerebrovascular accident (CVA), unspecified mechanism (HCC) Procedure(s) * A complete 2D, color Doppler, spectral Doppler and M-Mode transthoracic echocardiogram was performed with an Ultrasound Enhancing Agent (UEA) and a Bubble Study. Contrast/Agitated Saline Contrast / Saline: Definity Amount: 0.50 ml Reaction to Contrast: no Contrast / Saline: Agitated Saline Amount: 20.00 ml Reaction to Contrast: no Reason for Technically Difficult Study: patient supine Staff Referring Physician: Nomi Bhat Ordering Provider: Nomi Bhat Attending Physician: Nomi Bhat Stud Dairy Cattle Farmer: Alexis Clemente Left Ventricle Left ventricular systolic function is normal with an estimated ejection fraction of 71 % by biplane method of disks. The left ventricle is normal in size. The left ventricular mass is normal with concentric remodeling. Left ventricular segmental wall motion is normal. The left ventricular diastolic function is consistent with increased left atrial filling pressure. Right Ventricle The right ventricle is normal in size. Right ventricular systolic function is normal. Left Atrium The left atrium is severely dilated with a left atrial volume index of 51 ml/m2 by BP MOD. Right Atrium The right atrium is moderately dilated. Atrial Septum Intact interatrial septum visualized by 2D imaging. Agitated saline contrast study at rest and with Valsalva is negative for a shunt. Aortic Valve The aortic valve is possibly trileaflet and mildly calcified. There is no aortic valve regurgitation. There is no aortic valve stenosis with a peak velocity of 1.1 m/s, mean gradient of 2 mmHg, and aortic valve area of 3.03 cm2. Pulmonic Valve The pulmonic valve is not well visualized. There is no pulmonic valve stenosis. There is no clinically significant pulmonic regurgitation. Mitral Valve There is moderate mitral annular calcification. The mitral valve is displaying restricted posterior leaflet motion. There is no mitral valve stenosis. There is trace mitral valve regurgitation. Tricuspid Valve The tricuspid valve is not well visualized, but grossly normal. There is no tricuspid valve stenosis. There is trace tricuspid valve regurgitation. The pulmonary artery systolic pressure is mildly elevated, 41 mmHg. Inferior Vena Cava The inferior vena cava is normal in size (< 2.1 cm). There is > 50% collapse of the IVC upon inspiration with an estimated right atrial pressure of 3 mmHg. Pericardium/Pleural There is no pericardial effusion. Aorta The aortic root at the sinus of Valsalva is normal in size measuring 3.6 cm with an index of 2.0 cm/m2. The ascending aorta is normal in size measuring 2.8 cm with an index of 1.5 cm/m2. Measurements Left Ventricular Outflow Tract Name Value Normal LVOT 2D LVOT Diameter 2.2 cm LVOT Area 3.8 cm2 LVOT Doppler LVOT Peak Velocity 1.1 m/s LVOT Peak Gradient 4 mmHg LVOT Mean Velocity 59.60 cm/s LVOT Mean Gradient 2 mmHg LVOT VTI 19.4 cm LVOT VTI/AV VTI Ratio 0.8 LVOT Stroke Volume 73 ml LVOT Stroke Volume Index 40 ml/m2 35-58 Pulmonic Valve Name Value Normal PV Doppler PV Peak Velocity 1.1 m/s PV Peak Gradient 5 mmHg PV Mean Gradient 2 mmHg PV Accel Time 114.00 ms Mitral Valve Name Value Normal MV Doppler MV Peak Gradient 6 mmHg MV Mean Gradient 2 mmHg MV DI (VTI) 1.50 MV PHT 41 ms MV Area (PHT) 5.37 cm2 4.00-5.00 MV Area (Cont Eq VTI) 2.52 cm2 MV Diastolic Function MV E Peak Velocity 0.9 m/sec MV A Peak Velocity 0.3 m/sec MV E/A 3.3 MV Decel Time (PW) 141 ms MV Annular TDI MV Septal s' Velocity 7 cm/s MV Septal e' Velocity 7 cm/s >=8 MV Septal a' Velocity 4 cm/s MV E/e' (Septal) 12 <=8 MV A/a' (Septal) 7 MV Lateral s' Velocity 7 cm/s MV Lateral e' Velocity 11 cm/s >=10 MV Lateral a' Velocity 3 cm/s MV E/e' (Lateral) 8 <=8 MV A/a' (Lateral) 8 MV e' Average 9 cm/s MV E/e' (Average) 10 Tricuspid Valve Name Value Normal TV Regurgitation Doppler TR Peak Velocity 3.1 m/s TR Peak Gradient 38 mmHg Estimated PAP/RSVP RA Pressure 3 mmHg <=5 PA Systolic Pressure 41 mmHg <35 RV Systolic Pressure 41 mmHg <36 TV Annular TDI TV Lateral Teodora s' Velocity 8 cm/s 10-19 Aorta Name Value Normal Ascending Aorta Sinus of Valsalva Diameter 3.6 cm 2.8-4.0 Sinus of Valsalva Index 2.0 cm/m2 1.3-2.1 Ao Sinotub Junction Diameter 2.7 cm 2.6-3.2 Asc Ao Diameter 2.8 cm 2.2-3.8 Asc Ao Diameter Index 1.5 cm/m2 1.1-1.9 Venous Name Value Normal IVC/SVC IVC Diameter 1.9 cm <=2.1 Aortic Valve Name Value Normal AV Doppler AV Peak Velocity 1.12 m/s AV Peak Gradient 3 mmHg AV Mean Gradient 2 mmHg AV VTI 24 cm AV Area (Cont Eq VTI) 3.03 cm2 >=2.00 AV Area (Cont Eq Ronny) 3.82 cm2 AV DI (VTI) 0.80 AV DI (Ronny) 1.01 AV Regurgitation 2D LVOT Area 3.78 cm2 Ventricles Name Value Normal LV Dimensions 2D/MM IVS Diastolic Thickness (2D) 0.9 cm 0.6-1.0 LVID Diastole (2D) 4.5 cm 4.2-5.8 LVPW Diastolic Thickness (2D) 1.0 cm 0.6-1.0 LVID Systole (2D) 2.5 cm 2.5-4.0 LVPW Systolic Thickness (2D) 1.3 cm LV Mass (2D Cubed) 135 g 88-224 LV Mass Index (2D Cubed) 73 g/m2 49-115 Relative Wall Thickness (2D) 0.43 <=0.42 LV Fractional Shortening/Ejection Fraction 2D/MM LV Fractional Shortening (2D) 44 % 25-43 LV EF (2D Teicholz) 75 % 52-72 LV Diastolic Volume (4C MOD) 126 ml LV EF (4C MOD) 72 % LV Diastolic Volume (2C MOD) 133 ml LV EF (2C MOD) 72 % LV Diastolic Volume (BP MOD) 131 ml 62-150 LV Diastolic Volume Index (BP MOD) 71 ml/m2 34-74 LV Systolic Volume (BP MOD) 38 ml 21-61 LV Systolic Volume Index (BP MOD) 20 ml/m2 11-31 LV EF (BP MOD) 71 % 52-72 LV Diastolic Length (4C) 8.7 cm LV Systolic Length (4C) 6.4 cm LV Stroke Volume (4C MOD) 91 ml RV Dimensions 2D/MM RV Basal Diastolic Dimension 5.1 cm 2.5-4.1 RV Mid-Cavity Diastolic Dimension 3.4 cm 1.9-3.5 RV Diastolic Length (4C) 8.7 cm 5.9-8.3 TAPSE 2.0 cm >=1.7 Atria Name Value Normal LA Dimensions LA Dimension (2D) 3.7 cm 3.0-4.1 LA Dimen Index (2D) 2.0 cm/m2 LA Volume (BP MOD) 94 ml LA Volume Index (BP MOD) 51 ml/m2 16-34 RA Dimensions RA Diastolic Major [place] Length (4C) 5.8 cm RA Area (4C) 23 cm2 <=18 RA Area (4C) Index 12 cm2/m2 RA ESV (4C MOD) 81 ml 18-32 RA ESV Index (4C MOD) 44 ml/m2 16-34 Report Signatures Finalized by Bibi Blackwood on 05/29/2025 02:13 PM Procedure Note Bibi Blackwood MD - 05/29/2025 Summary * The left ventricle is normal in size, with normal systolic functionand an estimated ejection fraction of 71 % by biplane method of disks. Left ventricular wall motion is normal. * The left ventricular diastolic function is consistent with increasedleft atrial filling pressure. * Right ventricle is normal in size with normal systolic function. * The left atrium is severely dilated with a left atrial volume index of51 ml/m2 by BP MOD. * The right atrium is moderately dilated. * The pulmonary artery systolic pressure is mildly elevated, 41 mmHg. * Agitated saline contrast study at rest and with Valsalva is negativefor a shunt. Patient Info Name: Pavel Alfaro Age: 84 years : 1940 Gender: Male Ht: 77 in Wt: 143 lb BSA: 1.85 m2 HR: 66 bpm BP: 181 / 112 mmHg Heart Rhythm: Sinus Rhythm Exam Date: 05/29/2025 8:11 AM Patient Status: I/P Study Site: [facility] Primary Location: [facility] EStudy Info Technical Quality: Technically Difficult Exam Type: ECHO COMPLETE W CONTRAST W BUBBLE STUDY Indications I63.9 - Cerebrovascular accident (CVA), unspecified mechanism (HCC) Procedure(s) * A complete 2D, color Doppler, spectral Doppler and M-Modetransthoracic echocardiogram was performed with an Ultrasound Enhancing Agent (UEA) love Bubble Study. Contrast/Agitated Saline Contrast / Saline: Definity Amount: 0.50 ml Reaction to Contrast: no Contrast / Saline: Agitated Saline Amount: 20.00 ml Reaction to Contrast: no Reason for Technically Difficult Study: patient supine Staff Referring Physician: Nomi Bhat Ordering Provider: Nomi Bhat Attending Physician: Nomi Bhat Stud Dairy Cattle Farmer: Alexis Clemente Left Ventricle Left ventricular systolic function is normal with an estimatedejection fraction of 71 % by biplane method of disks. The left ventricle is normalin size. The left ventricular mass is normal with concentric remodeling.Left ventricular segmental wall motion is normal. The left ventriculardiastolic function is consistent with increased left atrial filling pressure. Right Ventricle The right ventricle is normal in size. Right ventricular systolicfunction is normal. Left Atrium The left atrium is severely dilated with a left atrial volume index of51 ml/m2 by BP MOD. Right Atrium The right atrium is moderately dilated. Atrial Septum Intact interatrial septum visualized by 2D imaging. Agitated salinecontrast study at rest and with Valsalva is negative for a shunt. Aortic Valve The aortic valve is possibly trileaflet and mildly calcified. There isno aortic valve regurgitation. There is no aortic valve stenosis with apeak velocity of 1.1 m/s, mean gradient of 2 mmHg, and aortic valve area of3.03 cm2. Pulmonic Valve The pulmonic valve is not well visualized. There is no pulmonic valve stenosis. There is no clinically significant pulmonic regurgitation. Mitral Valve There is moderate mitral annular calcification. The mitral valve is displaying restricted posterior leaflet motion. There is no mitral valve stenosis. There is trace mitral valve regurgitation. Tricuspid Valve The tricuspid valve is not well visualized, but grossly normal. There isno tricuspid valve stenosis. There is trace tricuspid valve regurgitation.The pulmonary artery systolic pressure is mildly elevated, 41 mmHg. Inferior Vena Cava The inferior vena cava is normal in size (< 2.1 cm). There is > 50%collapse of the IVC upon inspiration with an estimated right atrial pressure of 3mmHg. Pericardium/Pleural There is no pericardial effusion. Aorta The aortic root at the sinus of Valsalva is normal in size measuring 3.6cm with an index of 2.0 cm/m2. The ascending aorta is normal in sizemeasuring 2.8 cm with an index of 1.5 cm/m2. Measurements Left Ventricular Outflow Tract Name Value Normal LVOT 2D LVOT Diameter 2.2 cm LVOT Area 3.8 cm2 LVOT Doppler LVOT Peak Velocity 1.1 m/s LVOT Peak Gradient 4 mmHg LVOT Mean Velocity 59.60 cm/s LVOT Mean Gradient 2 mmHg LVOT VTI 19.4 cm LVOT VTI/AV VTI Ratio 0.8 LVOT Stroke Volume 73 ml LVOT Stroke Volume Index 40 ml/m2 35-58 Pulmonic Valve Name Value Normal PV Doppler PV Peak Velocity 1.1 m/s PV Peak Gradient 5 mmHg PV Mean Gradient 2 mmHg PV Accel Time 114.00 ms Mitral Valve Name Value Normal MV Doppler MV Peak Gradient 6 mmHg MV Mean Gradient 2 mmHg MV DI (VTI) 1.50 MV PHT 41 ms MV Area (PHT) 5.37 cm2 4.00-5.00 MV Area (Cont Eq VTI) 2.52 cm2 MV Diastolic Function MV E Peak Velocity 0.9 m/sec MV A Peak Velocity 0.3 m/sec MV E/A 3.3 MV Decel Time (PW) 141 ms MV Annular TDI MV Septal s' Velocity 7 cm/s MV Septal e' Velocity 7 cm/s >=8 MV Septal a' Velocity 4 cm/s MV E/e' (Septal) 12 <=8 MV A/a' (Septal) 7 MV Lateral s' Velocity 7 cm/s MV Lateral e' Velocity 11 cm/s >=10 MV Lateral a' Velocity 3 cm/s MV E/e' (Lateral) 8 <=8 MV A/a' (Lateral) 8 MV e' Average 9 cm/s MV E/e' (Average) 10 Tricuspid Valve Name Value Normal TV Regurgitation Doppler TR Peak Velocity 3.1 m/s TR Peak Gradient 38 mmHg Estimated PAP/RSVP RA Pressure 3 mmHg <=5 PA Systolic Pressure 41 mmHg <35 RV Systolic Pressure 41 mmHg <36 TV Annular TDI TV Lateral Teodora s' Velocity 8 cm/s 10-19 Aorta Name Value Normal Ascending Aorta Sinus of Valsalva Diameter 3.6 cm 2.8-4.0 Sinus of Valsalva Index 2.0 cm/m2 1.3-2.1 Ao Sinotub Junction Diameter 2.7 cm 2.6-3.2 Asc Ao Diameter 2.8 cm 2.2-3.8 Asc Ao Diameter Index 1.5 cm/m2 1.1-1.9 Venous Name Value Normal IVC/SVC IVC Diameter 1.9 cm <=2.1 Aortic Valve Name Value Normal AV Doppler AV Peak Velocity 1.12 m/s AV Peak Gradient 3 mmHg AV Mean Gradient 2 mmHg AV VTI 24 cm AV Area (Cont Eq VTI) 3.03 cm2 >=2.00 AV Area (Cont Eq Ronny) 3.82 cm2 AV DI (VTI) 0.80 AV DI (Ronny) 1.01 AV Regurgitation 2D LVOT Area 3.78 cm2 Ventricles Name Value Normal LV Dimensions 2D/MM IVS Diastolic Thickness (2D) 0.9 cm 0.6-1.0 LVID Diastole (2D) 4.5 cm 4.2-5.8 LVPW Diastolic Thickness (2D) 1.0 cm 0.6-1.0 LVID Systole (2D) 2.5 cm 2.5-4.0 LVPW Systolic Thickness (2D) 1.3 cm LV Mass (2D Cubed) 135 g 88-224 LV Mass Index (2D Cubed) 73 g/m2 49-115 Relative Wall Thickness (2D) 0.43 <=0.42 LV Fractional Shortening/Ejection Fraction 2D/MM LV Fractional Shortening (2D) 44 % 25-43 LV EF (2D Teicholz) 75 % 52-72 LV Diastolic Volume (4C MOD) 126 ml LV EF (4C MOD) 72 % LV Diastolic Volume (2C MOD) 133 ml LV EF (2C MOD) 72 % LV Diastolic Volume (BP MOD) 131 ml 62-150 LV Diastolic Volume Index (BP MOD) 71 ml/m2 34-74 LV Systolic Volume (BP MOD) 38 ml 21-61 LV Systolic Volume Index (BP MOD) 20 ml/m2 11-31 LV EF (BP MOD) 71 % 52-72 LV Diastolic Length (4C) 8.7 cm LV Systolic Length (4C) 6.4 cm LV Stroke Volume (4C MOD) 91 ml RV Dimensions 2D/MM RV Basal Diastolic Dimension 5.1 cm 2.5-4.1 RV Mid-Cavity Diastolic Dimension 3.4 cm 1.9-3.5 RV Diastolic Length (4C) 8.7 cm 5.9-8.3 TAPSE 2.0 cm >=1.7 Atria Name Value Normal LA Dimensions LA Dimension (2D) 3.7 cm 3.0-4.1 LA Dimen Index (2D) 2.0 cm/m2 LA Volume (BP MOD) 94 ml LA Volume Index (BP MOD) 51 ml/m2 16-34 RA Dimensions RA Diastolic Major [place] Length (4C) 5.8 cm RA Area (4C) 23 cm2 <=18 RA Area (4C) Index 12 cm2/m2 RA ESV (4C MOD) 81 ml 18-32 RA ESV Index (4C MOD) 44 ml/m2 16-34 Report Signatures Finalized by Bibi Blackwood on 05/29/2025 02:13 PM us Nomi Bhat MD ECHO CUPID Final Resul t * FL Swallowing Function Study (05/29/2025 10:15 AM SENIOR VALIDATION ENGINEER) Anatomical Region Laterality Modality Chest Digital Radiogra phy 05/30/2025 10:2 3 AM SENIOR VALIDATION ENGINEER Impressions 05/30/2025 10:23 AM SENIOR VALIDATION ENGINEER IMPRESSION: Modified barium swallow fluoroscopy as described. Please see detailed report from speech pathology staff. > Interpreting Provider: Coral Tamez MD on 05/30/2025 10:23 AM Narrative 05/30/2025 10:23 AM SENIOR VALIDATION ENGINEER PROCEDURE: FL SWALLOWING FUNCTION STUDY DATE/TIME OF EXAM: 05/29/2025 10:18 AM CLINICAL INFORMATION: None relevant/not provided if blank. Indication: Z86.73: Status post CVA Additional History: COMPARISON: None. TECHNIQUE: Modified barium swallow fluoroscopy performed in conjunction with speech pathology staff. The speech pathologist administered varying thickness barium liquids and solids under direct Cine fluoroscopy. FINDINGS: FLUOROSCOPY DOSE: 3.3 mGy Reference air kerma (ka,r). Procedure Note Coral Tamez MD - 05/30/2025 PROCEDURE: FL SWALLOWING FUNCTION STUDY DATE/TIME OF EXAM: 05/29/2025 10:18 AM CLINICAL INFORMATION: None relevant/not provided if blank. Indication: Z86.73: Status post CVA Additional History: COMPARISON: None. TECHNIQUE: Modified barium swallow fluoroscopy performed in conjunction with speech pathology staff. The speech pathologist administered varying thickness barium liquids and solids under direct Cine fluoroscopy. FINDINGS: FLUOROSCOPY DOSE: 3.3 mGy Reference air kerma (ka,r). IMPRESSION: Modified barium swallow fluoroscopy as described. Please see detailed report from speech pathology staff. > Interpreting Provider: Coral Tamez MD on 05/30/2025 10:23 AM us Nomi Bhat MD FLUOROSCOPY ORDERABLES Matilde l Result * (ABNORMAL) LIPID PROFILE (05/28/2025 11:57 PM SENIOR VALIDATION ENGINEER) Cholesterol Total 173 <200 mg/dL 05/29/2025 12:32 AM [facility] HDL 28(L) >40 mg/dL 05/29/2025 12:32 AM [facility] Comment: ATP III Classification of HDL Cholesterol: <40 mg/dL: Considered a major risk factor. >60 mg/dL: Considered a negative risk factor. LDL Calculated 118(H) <100 mg/dL 05/29/2025 12:32 AM [facility] Comment: ATP III Classification of LDL Cholesterol: <100 mg/dL: Optimal 100 - 129 mg/dL: Near Optimal/Above Optimal 130 - 159 mg/dL: Borderline High 160 - 189 mg/dL: High >190 mg/dL: Very High LDL is calculated using the Friedewald equation. Triglycerides 137 <150 mg/dL 05/29/2025 12:32 AM [facility] Comment: ATP III Classification of Triglycerides: <150 mg/dL: Normal 150 - 199 mg/dL: Borderline High 200 - 400 mg/dL: High >500 mg/dL: Very High Blood BLOOD SPECIMEN / Unknown Venipuncture / Unknown 05/28/2025 11:57 PM SENIOR VALIDATION ENGINEER 05/29/2025 12:02 AM SENIOR VALIDATION ENGINEER us Nomi Bhat MD LAB - CHEMISTRY ORDERABLES Final Result Performing Organization Address City/[facility]/ZIP Co de Phone Number [address] [address], [place] [phone] * TROPONIN-I HIGH SENSITIVE REFLEX 1HOUR (05/28/2025 7:47 PM SENIOR VALIDATION ENGINEER) Troponin I High Sensitive 12 <=35 ng/L 05/28/2025 8:35 PM [facility] Delta Troponin I HS 1 <6 ng/L 05/28/2025 8:35 PM [facility] Blood BLOOD SPECIMEN / Unknown Venipuncture / Unknown 05/28/2025 7:47 PM SENIOR VALIDATION ENGINEER 05/28/2025 8:02 PM SENIOR VALIDATION ENGINEER Nomi Bhat MD LAB - CHEMISTRY ORDERABLES Final Result Performing Organization Address [facility] Co de Phone Number [address] [address], [place] [phone] * (ABNORMAL) HEMOGLOBIN A1C (05/28/2025 7:47 PM SENIOR VALIDATION ENGINEER) Hemoglobin A1c 6.1(H) <=5.6 % 05/29/2025 8:46 AM [facility] Estimated Average Glucose 128 mg/dL 05/29/2025 8:46 AM [facility] Comment: HbA1c Interpretation: Normal : < 5.7% Pre-diabetes: 5.7-6.4% Diabetes: Equal to or greater than 6.5% Test results diagnostic of diabetes should be repeated for confirmation. Treatment target values recommended by ADA and other clinical organizations should be used to evaluate metabolic control in patients. Reference: [place] [employer], Standards of Care in Diabetes -2020 In patients 70 years and older consider HbA1c target range of 7.0-7.5% (Reference: Sam Sweet et al. JAMDA. 2012) The [place] assay for the measurement of HbA1c is a National Glycohemoglobin Standardization Program (NGSP) certified method. Blood BLOOD SPECIMEN / Unknown Venipuncture / Unknown 05/28/2025 7:47 PM SENIOR VALIDATION ENGINEER 05/28/2025 8:02 PM SENIOR VALIDATION ENGINEER Nomi Bhat MD LAB - CHEMISTRY ORDERABLES Final Result [address] [address], [place] [phone] * TROPONIN-I HIGH SENSITIVE BASELINE + 1HR (05/28/2025 6:47 PM SENIOR VALIDATION ENGINEER) Troponin I High Sensitive 11 <=35 ng/L 05/28/2025 7:41 PM SENIOR VALIDATION ENGINEER [facility] Blood BLOOD SPECIMEN / Unknown Venipuncture / Unknown 05/28/2025 6:47 PM SENIOR VALIDATION ENGINEER 05/28/2025 7:06 PM SENIOR VALIDATION ENGINEER Nomi Bhat MD LAB - CHEMISTRY ORDERABLES Final Result Performing Organization Address [facility]/ZIP Co de Phone Number [address] [address], [place] [phone] * PTT (05/28/2025 6:15 PM SENIOR VALIDATION ENGINEER) APTT 27.8 23.0 - 38.4 Seconds 05/28/2025 6:53 PM [facility] Comment:Suggested therapeuti c range for full dose I.V. unfractionated heparin therapy for venous thromboembolism is 71 to 109 seconds. Blood BLOOD SPECIMEN / Unknown Venipuncture / Unknown 05/28/2025 6:15 PM SENIOR VALIDATION ENGINEER 05/28/2025 6:18 PM SENIOR VALIDATION ENGINEER John Kumar MD LAB - COAGULATION ORDERABLES Final Result Performing Organization Address City/[facility]/ZIP Co de Phone Number [address] [address], [place] [phone] * PT-INR (05/28/2025 6:15 PM SENIOR VALIDATION ENGINEER) PT 14.2 12.1 - 14.8 Seconds 05/28/2025 6:53 PM SENIOR VALIDATION ENGINEER [facility] INR 1.1 See Comment 05/28/2025 6:53 PM [facility] Comment:The suggested therap eutic range for standard coumadin (warfarin) therapy is an INR of 2.0-3.0. For high-risk patients (Mechanical Mitral Valve Prosthesis, etc.), the suggested prophylactic therapeutic range is an INR of 2.5-3.5. Blood BLOOD SPECIMEN / Unknown Venipuncture / Unknown 05/28/2025 6:15 PM SENIOR VALIDATION ENGINEER 05/28/2025 6:18 PM SENIOR VALIDATION ENGINEER John Kumar MD LAB - COAGULATION ORDERABLES Final Result [facility] [address] [place] [address], [place] [phone] * EKG 12-LEAD - If not done in ED (05/28/2025 6:09 PM SENIOR VALIDATION ENGINEER) Pathologist [facility] Ventricular Rate 65 BPM [facility] MUSE QRS Duration ms 82 ms [facility] Q-T Interval ms 394 ms [facility] QTC Calculation (Bezet) 409 ms [facility] Calculated R [place] 56 degrees [facility] Calculated T [place] 71 degrees [facility] Interpretation EKG ATRIAL FIBRILLATION SEPTAL INFARCT , AGE UNDETERMINED ST & T WAVE ABNORMALITY, CONSIDER ANTEROLATERAL ISCHEMIA ABNORMAL ECG NO PREVIOUS ECGS AVAILABLE Confirmed by PENNY WOODWARD MD ([id number]) on 05/29/2025 2:00:17 PM [facility] MUSE 05/28/2025 6:09 PM SENIOR VALIDATION ENGINEER 05/29/2025 2:00 PM SENIOR VALIDATION ENGINEER us Nomi Bhat MD ECG ORDERABLES Edited Resu lt - Final Performing Organization Address City/[facility]/ZIP Co de Phone Number [facility] MUSE * TROPONIN-I HIGH SENSITIVE (05/28/2025 5:55 PM SENIOR VALIDATION ENGINEER) Pathologist [facility] Troponin I High Sensitive <3 <=35 ng/L 05/28/2025 7:54 PM SENIOR VALIDATION ENGINEER [facility] Blood BLOOD SPECIMEN / Unknown Venipuncture / Unknown 05/28/2025 5:55 PM SENIOR VALIDATION ENGINEER 05/28/2025 6:21 PM SENIOR VALIDATION ENGINEER us John Kumar MD LAB - CHEMISTRY ORDERABLES F inal Result [facility] [address] [place] [id number], [place] [phone] * (ABNORMAL) COMPREHENSIVE METABOLIC PANEL (05/28/2025 5:55 PM SENIOR VALIDATION ENGINEER) BUN 12 7 - 26 mg/dL 05/28/2025 7:57 PM [facility] Creatinine 0.39(L) 0.71 - 1.16 mg/dL 05/28/2025 7:57 PM [facility] Sodium 123(LL) 136 - 145 mmol/L 05/28/2025 7:57 PM [facility] Potassium 1.5(LL) 3.5 - 4.5 mmol/L 05/28/2025 7:57 PM [facility] Chloride 113(H) 98 - 107 mmol/L 05/28/2025 7:57 PM [facility] CO2 8(LL) 22 - 29 mmol/L 05/28/2025 7:57 PM [facility] Glucose 39(LL) 70 - 99 mg/dL 05/28/2025 7:57 PM [facility] Calcium 3.2(LL) 8.4 - 10.2 mg/dL 05/28/2025 7:57 PM [facility] Protein Total 2.4(L) 6.0 - 8.3 g/dL 05/28/2025 7:57 PM [facility] Albumin 1.1(L) 3.4 - 5.0 g/dL 05/28/2025 7:57 PM [facility] Bilirubin Total 0.1(L) 0.2 - 1.2 mg/dL 05/28/2025 7:57 PM [facility] Alkaline Phosphatase 27(L) 40 - 150 U/L 05/28/2025 7:57 PM [facility] ALT <5(L) 5 - 55 U/L 05/28/2025 7:57 PM [facility] AST 6 5 - 34 U/L 05/28/2025 7:57 PM [facility] Anion Gap 2(L) 6 - 16 05/28/2025 7:57 PM [facility] BUN/Creatinine Ratio 31(H) 7 - 23 05/28/2025 7:57 PM [facility] Osmolality Calculated 252(L) 275 - 295 mOsm/kg 05/28/2025 7:57 PM [facility] Albumin/Globulin Ratio 0.8(L) 1.1 - 2.3 05/28/2025 7:57 PM [facility] eGFR by CKD-EPI >90 >=90 mL/min/1.7 3 m2 05/28/2025 7:57 PM [facility] Comment:Estimated Glomerular Filtration Rate (eGFR) calculated using the CKD-EPI Creatinine Equation (2020), per the National Kid[employer] Foundation and [place] [employer]ph[employer] recommendations. Blood BLOOD SPECIMEN / Unknown Venipuncture / Unknown 05/28/2025 5:55 PM SENIOR VALIDATION ENGINEER 05/28/2025 6:21 PM SENIOR VALIDATION ENGINEER John Kumar MD LAB - CHEMISTRY ORDERABLES F inal Result [facility] [address] [place] [address], [place] [phone] from Last 3 Months Insurance [employer] MEDICARE ADV Advance Directives * Full Code (Latest Code Status on File) Date Activated Date Inactivated Comments 05/28/2025 6:20 PM 06/02/2025 5:23 PM * Full Code Date Activated Date Inactivated Comments 05/28/2025 6:17 PM 05/28/2025 6:20 PM
[2025-06-08 12:42] VITALS: BP 150/70; PULSE 79; RESP 18; O2SAT 100
--- NOTE | 2025-06-08 13:38 | ED.NEUROSD ---
HPI - Neuro Symptoms/Deficit General Chief Complaint: Neuro Symptoms/Deficit Stated Complaint: change in status Time Seen by Provider: 06/08/25 12:05 History of Present Illness HPI Narrative: Patient with history of recent CVA causing dysarthria and right-sided weakness presents here sent from rehab due to their concern that his weakness seems to be getting worse this morning during therapy. At the time of my evaluation, patient states that he actually feels better now, is denying any complaints Related Data Home Medications ?Medication ?Instructions ?Recorded ?Confirmed ?Last Taken ?Type apixaban 5 mg tablet (Eliquis) 5 mg PO BID 06/02/25 06/02/25 06/02/25 09:00 History atorvastatin 80 mg tablet (Lipitor) 80 mg PO HS 06/02/25 06/02/25 06/01/25 History bumetanide 2 mg tablet 2 mg PO DAILY 06/02/25 06/02/25 06/02/25 09:00 History carbidopa 25 mg-levodopa 100 mg 1.5 tablet PO .5 times a day 06/02/25 06/02/25 06/02/25 History tablet (Sinemet) carvedilol 6.25 mg tablet 6.25 mg PO BIDWM 06/02/25 06/02/25 06/02/25 History clonazepam 1 mg tablet (Klonopin) 1 mg PO HS 06/02/25 06/02/25 06/02/25 History folic acid 1 mg tablet 0.5 mg PO DAILY 06/02/25 06/02/25 06/02/25 History hydroxyzine HCl 10 mg tablet 10 mg PO HS 06/02/25 06/02/25 06/01/25 History omeprazole 40 mg capsule,delayed 40 mg PO DAILY 06/02/25 06/02/25 06/02/25 History release polyethylene glycol 3350 17 gram 17 g PO DAILY 06/02/25 06/02/25 06/02/25 History oral powder packet potassium chloride 20 mEq 20 meq PO BID 06/02/25 06/02/25 06/02/25 History tablet,extended release (K-Tab) sennosides 8.6 mg tablet 8.6 mg PO DAILY 06/02/25 06/02/25 06/02/25 History Allergies Allergy/AdvReac Type Severity Reaction Status Date / Time hydrochlorothiazide Allergy Severe Scrotal Verified 06/02/25 17:30 rash, swelling Sulfa (Sulfonamide Allergy Unknown unknown Verified 06/02/25 17:30 Antibiotics) Review of Systems Review of Systems: All systems reviewed & are unremarkable except as noted in HPI and below PMFSH Past Medical History Medical History GERD (gastroesophageal reflux disease) Parkinson's disease with dyskinesia Presence of Watchman left atrial appendage closure device Chronic diastolic heart failure Controlled diabetes mellitus with hyperglycemia COPD (chronic obstructive pulmonary disease) Atrial fibrillation, chronic Social History Social History Smoking status: Former smoker Tobacco type: cigarettes Alcohol intake: former Substance use: never Lack of Transportation: No Lack of Food: Never True Current Housing: I Have Housing Concerned About Future Housing: No Difficulty Paying Gas/Electric Bills: No Difficulty Paying for Meds: No Currently Unemployed: No Education: High School Diploma/GED Difficulty w/ Childcare or Family Care: No Spiritual care concerns: Yes (Jewish background, last rites, communion) Exam Narrative: EXAMINATION OF ORGAN SYSTEMS/BODY AREAS: Constitutional: Vital signs per nursing GENERAL:[No acute distress, non-toxic appearing.] HEAD: Normal with no signs of head trauma. EYES: EOMI, conjunctiva normal ENT: Dysarthric LUNGS: Nonlabored breathing. HEART: [Regular rate and rhythm] ABD: [Soft], [nontender to palpation] EXT: No obvious deformities SKIN: [No rashes or lesions.] NEURO: [Alert; dysarthric speech. Very slight weaker right upper extremity compared to left upper extremity.] PSYCH: Normal affect Course Vital Signs Vital signs: Vital Signs Temperature 97.6 F 06/08/25 11:12 Pulse Rate 67 06/08/25 11:12 Respiratory Rate 28 H 06/08/25 11:12 Temperature 97.6 F 06/08/25 11:12 Pulse Rate 79 06/08/25 12:42 Respiratory Rate 18 06/08/25 12:42 Blood Pressure 150/70 H 06/08/25 12:42 Pulse Oximetry 100 06/08/25 12:42 MDM - Neuro Symptoms/Deficit MDM Narrative Medical decision making narrative: Patient with history of recent CVA causing dysarthria and right-sided weakness presents here sent from rehab due to their concern that his weakness seems to be getting worse this morning during therapy. At the time of my evaluation, patient states that he actually feels better now, and he actually has pretty equal strength bilateral upper extremities, though he is still dysarthric. Discussed this with family at bedside, who agree that he is actually better than he was when I saw him a couple days ago. Discussed that often after any acute stroke there may be symptoms that get better or worse for at least the 1st month. Workup initiated here unremarkable including CT brain without acute findings, shows chronic appearing infarcts. Patient and family agreeable to him going back to rehab at this time. His exam currently is very reassuring, he is to follow-up with his neurologist and he return to the ER for any further issues. Lab Data 06/08/25 11:21 06/08/25 11:21 Labs: Lab Results 06/08/25 06/08/25 Range/Units 11:16 11:21 WBC 8.2 (4.5-10.0) K/mm3 RBC 3.88 L (4.6-6.20) M/mm3 Hgb 12.2 L (14.0-18.0) g/dL Hct 38.0 L (42.0-52.0) % MCV 97.9 (80-100) fl MCH 31.4 (26-34) pg MCHC 32.1 (32-36) g/dl RDW 12.2 (11.5-14.5) % Plt Count 310 (150-375) k/mm3 MPV 10.7 H (7.4-10.4) fl Immature Gran % (Auto) 0.7 H (0-0.5) % Neut % (Auto) 78.3 H (45.5-73.1) % Lymph % (Auto) 8.5 L (18.3-44.2) % [place] % (Auto) 10.8 H (2.6-8.5) % Eos % (Auto) 1.1 (0-4.4) % Baso % (Auto) 0.6 (0.2-1.2) % Lymph # (Auto) 0.69 L (0.9-3.2) K/mm3 [place] # (Auto) 0.9 H (0.1-0.6) K/mm3 Eos # (Auto) 0.1 (0-0.3) K/mm3 Baso # (Auto) 0.1 (0.0-0.1) K/mm3 Abs Immat Gran (auto) 0.06 H (0.00-0.031) K/mm3 Absolute Neuts (auto) 6.4 (1.3-6.7) K/mm3 Absolute Nucleated RBC 0.000 (0.0-0.012) K/mm3 Nucleated RBC % 0.0 (0.0-0.2) % PT 19.0 H (11.1-14.7) Seconds INR 1.6 APTT 33.9 (22.3-36.8) Seconds Sodium 140 (137-145) mmol/L Potassium 4.5 (3.4-5.0) mmol/L Chloride 101 (98-107) mmol/L Carbon Dioxide 33 H (22-30) mmol/L Anion Gap 6 (4-12) mmol/L BUN 39 H (9-20) mg/dL Creatinine 1.42 H (0.7-1.3) mg/dL Estim Creat Clear Calc Not Reportable Estimated GFR 47 L (59 - ) Glucose 119 H (65-110) mg/dL POC Capillary Glucose 133 H (65-105) mg/dl Calcium 9.4 (8.4-10.2) mg/dL Total Bilirubin 0.6 (0.2-1.3) mg/dL AST 27 (17-59) U/L ALT 6 (6-50) U/L Alkaline Phosphatase 108 (38-126) U/L Troponin I 0.019 (0.000-0.034) ng/mL Total Protein 7.6 (6.3-8.2) g/dL Albumin 4.3 (3.5-5.1) g/dL Discharge Plan Discharge Clinical Impression: Cerebrovascular accident Patient Disposition: Inpatient Rehab Facility Condition: Stable Instructions: Stroke (DC) Additional Instructions: Please follow-up with your neurologist, you can always return to the emergency room for any further issues. Patient Language: German Prescriptions: No Action Eliquis 5 mg tablet 5 mg PO BID atorvastatin [Lipitor] 80 mg tablet 80 mg PO HS sennosides 8.6 mg tablet 8.6 mg PO DAILY carvedilol 6.25 mg tablet 6.25 mg PO BIDWM Rx Instructions: must administer with a meal/food bumetanide 2 mg tablet 2 mg PO DAILY polyethylene glycol 3350 17 gram powder in packet 17 g PO DAILY clonazepam [Klonopin] 1 mg tablet 1 mg PO HS omeprazole 40 mg capsule,delayed release(DR/EC) 40 mg PO DAILY folic acid 1 mg tablet 0.5 mg PO DAILY carbidopa-levodopa [Sinemet] 25-100 mg tablet 1.5 tablet PO .5 times a day hydroxyzine HCl 10 mg tablet 10 mg PO HS potassium chloride [K-Tab] 20 mEq tablet extended release 20 meq PO BID Follow-up/Referrals: PHYSICIAN NOT ON STAFF,NONSTAFF [Primary Care Provider]
== END 2025-06-08 13:34 ==
PROVIDERS: Emergency Medicine; Emergency Provider Emergency Medicine
DX: I69.951 Hemiplegia and hemiparesis following unspecified cerebrovascular disease affecting right dominant side (principal); I69.922 Dysarthria following unspecified cerebrovascular disease; I50.32 Chronic diastolic (congestive) heart failure; I48.20 Chronic atrial fibrillation, unspecified; E11.9 Type 2 diabetes mellitus without complications; J44.9 Chronic obstructive pulmonary disease, unspecified; G20.B1 Parkinson's disease with dyskinesia, without mention of fluctuations; K21.9 Gastro-esophageal reflux disease without esophagitis; Z87.891 Personal history of nicotine dependence; R94.31 Abnormal electrocardiogram [ECG] [EKG]; Z79.01 Long term (current) use of anticoagulants; Z79.899 Other long term (current) drug therapy
CPT/HCPCS: 36415; 70450; 71045; 80053; 82948; 84484; 85025; 85610; 85730; 93005; 96374; 99284; J0360